=== PATIENT | male | born 1990 | race African-American/Black ===

== ENCOUNTER 2021-04-23 01:35 | Emergency (ER) | payer OTHER ==
[2021-04-23 01:50] VITALS: PULSE 102; TEMP 97.7; BMI 21.2
[2021-04-23] MEDS ORDERED: predniSONE 20 MG TABLET (UD) PO ONE (02:17)
[2021-04-23] MEDS ORDERED: diphenhydrAMINE HCL 25 MG CAPSULE (FP) PO ONE ×2 (02:17→02:18)
[2021-04-23] MEDS ORDERED: predniSONE 20 MG TABLET (UD) ONE (02:18)
[2021-04-23 02:21] VITALS: BP 138/66
== END 2021-04-23 03:54 | disposition home or self-care (01) ==
LOC: JER 01:35
DX: T78.40XA Allergy, unspecified, initial encounter (principal)
CPT/HCPCS: 99283-25